=== PATIENT | female | born 1950 | race Caucasian/White ===

== ENCOUNTER → 2017-04-05 | Outpatient (CLI) | payer MEDICARE, OTHER ==
[~2017-04-05] MED LIST: AMBIEN DPS10 MG PO; ASA CHILDREN'S81 MG PO; CALTRATE-600 W600 MG PO; FLEXERIL-DPS10 MG PO; LUTEIN20 M1 PO; OXY IR DPS5 MG PO; SENOKOT S1 TAB PO; THERAPEUTIC MUL1 TAB PO; TYLENOL DPS325 MG PO; VITAMIN D35000 UNI1 PO; XARELTO10 MG PO; ZESTRIL DPS5 MG PO
--- NOTE | 2017-04-08 15:48 | SS ---
ADMIT: 04/05/2017 RM/LOC: [facility] MR#: [id number] [facility] [address] [place] [id number] FLOR[address] RUIZ [address] [place] [address] Sleep Study SEX: F AGE: 67 : 1950 STUDY DATE: 04/05/2017 REFERRING PHYSICIAN: Melvin Kam MD CLINICAL HISTORY: A 67-year-old female, body mass index 35.4, 66 inches tall, 220 pounds, with symptoms of snoring and daytime hypersomnolence, undergoing evaluation for obstructive sleep apnea. TECHNICAL DESCRIPTION: Diagnostic polysomnogram performed on night of 04/05/2017, attended by a trained electronics engineering technologist. DIAGNOSTIC POLYSOMNOGRAM FINDINGS: SLEEP: Total time in bed is 435.5 minutes, total sleep time 274 minutes, sleep efficiency 62.9%. 56.9% hours spent in stage II sleep, 1.9% hours spent in stage REM. BREATHING: No clear evidence of obstructive sleep apnea. Apnea-hypopnea 0.4. OXYGEN SATURATION: Mean sleeping oxygen 93%. CARDIAC: Average heart rate 76 beats per minute. MOVEMENTS/POSITION: During the study, the patient slept in the lateral position predominantly, brief time in the supine position with severe periodic leg movement of sleep. Periodic leg movement index of 92. IMPRESSION/PLAN: No evidence of obstructive sleep apnea. Apnea-hypopnea of 0.4. No indication for CPAP therapy. Severe periodic leg movements of sleep were seen. I would recommend correlation with history of restless legs syndrome .If the patient has a history of concomitant restless legs syndrome, then pharmacological treatment may be considered. Again, no indication for CPAP therapy. Stanley Zuniga MD/ abhi JOB #: [id number] CC: Parvin Rebollar MD, Attending Physician Parvin Rebollar MD, Family Physician Parvin Rebollar MD
== END | disposition home or self-care (01) ==
LOC: RESC 19:55
DX: G47.10 Hypersomnia, unspecified (principal); R12 Heartburn; D75.1 Secondary polycythemia